=== PATIENT | male | born 1955 | race Caucasian/White ===

== ENCOUNTER → 2017-07-31 | Outpatient (CLI) | payer BC ==
[~2017-07-31] MED LIST: FLEXERIL10 MG PO; MOTRIN600 MG PO; VICODIN 5/500 505 MG PO
== END | disposition home or self-care (01) ==
LOC: US 10:17
DX: I10 Essential (primary) hypertension (principal)

== ENCOUNTER 2018-03-10 22:11 | Emergency (ER) | payer BC ==
[~2018-03-10] VITALS: Ht 177.8 cm; Wt 72.6 kg
[2018-03-11] MEDS ORDERED: CEPHALEXIN500 M1 PO (00:37)
== END 2018-03-11 01:25 | disposition home or self-care (01) ==
LOC: ED 22:11
DX: S61.212A Laceration without foreign body of right middle finger without damage to nail, initial encounter (principal); S61.214A Laceration without foreign body of right ring finger without damage to nail, initial encounter; E11.9 Type 2 diabetes mellitus without complications; Z86.018 Personal history of other benign neoplasm; W26.8XXA Contact with other sharp object(s), not elsewhere classified, initial encounter; Y93.G9 Activity, other involving cooking and grilling; Y92.89 Other specified places as the place of occurrence of the external cause; Y99.8 Other external cause status

== ENCOUNTER 2022-05-21 10:31 | Inpatient (IN) | payer MEDICARE ==
[~2022-05-21] VITALS: Ht 175.2 cm; Wt 70.1 kg
[~2022-05-21 10:31] MED LIST changes: +CEPHALEXIN500 M1 PO
[2022-05-21 10:43] VITALS: BP 165/92
[2022-05-21 11:04] LABS: BASO # 0.1 10*3/uL (0.0-0.1); BASO % 1.2 % (0.0-1.0); EOS # 0.1 10*3/uL (0.0-0.4); EOS % 1.9 % (1.0-4.0); HEMATOCRIT 41.9 % (42.0-52.0); LYMPH # 2.2 10*3/uL (1.3-4.4); LYMPH % 43.4 % (27.0-41.0); MEAN CELL VOLUME 75.9 fl (80.0-94.0); MEAN CORPUSCULAR HGB 24.6 pg (27.0-31.0); MEAN CORPUSCULAR HGB CONC 32.5 g/dl (33.0-37.0); MONO # 0.6 10*3/uL (0.1-1.0); NEUT # 2.2 10*3/uL (2.3-7.9); NEUT % 42.3 % (47.0-73.0); PLATELET COUNT AUTOMATED 385 10*3/uL (130-400); RED BLOOD COUNT 5.52 10*6/uL (4.50-5.90); RED CELL DISTRI WIDTH 13.8 % (0-14.5); WHITE BLOOD COUNT 5.2 10*3/uL (4.8-10.8)
[2022-05-21 11:11] VITALS: BP 156/77
[2022-05-21 11:15] LABS: ACT PARTIAL THROMBO TIME 26.9 SECONDS (20.0-32.1); INTERNATIONAL NORM RATIO 0.9 (2.0-3.5)
[2022-05-21 11:27] LABS: ALKALINE PHOSPHATASE 65 U/L (45-117); BUN 16 mg/dl (7-24); CHLORIDE 108 mmol/L (98-107); CREATININE 1.12 mg/dL (0.70-1.30); POTASSIUM 3.5 mmol/L (3.5-5.1); SGOT/AST 18 IU/L (3-35); SGPT/ALT 36 U/L (12-78); SODIUM 140 mmol/L (136-145); TOTAL PROTEIN 7.3 gm/dL (6.4-8.2)
[2022-05-21 14:38] VITALS: BP 162/83
[2022-05-21] MEDS ORDERED: AMLODIPINE BESY10 MG PO (16:42)
[2022-05-21] MEDS ORDERED: COZAAR25 M1 PO (16:42)
[2022-05-21] MEDS ORDERED: HYDROCHLOROTHIA25 M1 PO (16:43)
[2022-05-21] MEDS ORDERED: TRULICITY3 MG/0.5 M SQ (16:44)
[2022-05-21 21:59] VITALS: BP 182/90
[2022-05-22] VITALS: BP 186/80
[2022-05-22 06:25] LABS: BASO # 0.1 10*3/uL (0.0-0.1); BASO % 1.1 % (0.0-1.0); EOS # 0.1 10*3/uL (0.0-0.4); EOS % 1.5 % (1.0-4.0); HEMATOCRIT 43.6 % (42.0-52.0); LYMPH # 2.2 10*3/uL (1.3-4.4); MEAN CELL VOLUME 76.5 fl (80.0-94.0); MEAN CORPUSCULAR HGB 24.4 pg (27.0-31.0); MEAN CORPUSCULAR HGB CONC 31.9 g/dl (33.0-37.0); MEAN PLATELET VOLUME 11.3 fl (9.6-12.3); MONO # 0.6 10*3/uL (0.1-1.0); MONO % 10.4 % (3.0-9.0); NEUT # 2.5 10*3/uL (2.3-7.9); NEUT % 46.8 % (47.0-73.0); PLATELET COUNT AUTOMATED 384 10*3/uL (130-400); RED CELL DISTRI WIDTH 13.9 % (0-14.5); WHITE BLOOD COUNT 5.4 10*3/uL (4.8-10.8)
[2022-05-22 06:27] LABS: ACT PARTIAL THROMBO TIME 27.6 SECONDS (20.0-32.1)
[2022-05-22 06:34] LABS: BUN 16 mg/dl (7-24); CHLORIDE 109 mmol/L (98-107); CHOLESTEROL 266 mg/dL (<200); CREATININE 1.15 mg/dL (0.70-1.30); LDL CHOLESTEROL 197 mg/dL (9-159); POTASSIUM 3.7 mmol/L (3.5-5.1); SGOT/AST 21 IU/L (3-35); SGPT/ALT 37 U/L (12-78); SODIUM 141 mmol/L (136-145); TRIGLYCERIDES 159 mg/dl (<150)
[2022-05-22 06:39] LABS: ALKALINE PHOSPHATASE 61 U/L (45-117); FREE T4 1.27 ng/dl (0.76-1.46); TOTAL PROTEIN 7.4 gm/dL (6.4-8.2)
[2022-05-22 08:00] VITALS: BP 188/78
[2022-05-22 08:08] LABS: VITAMIN D, 25-HYDROXY 23.4 ng/mL (30-100)
[2022-05-22] MEDS ORDERED: ASPIRIN ADULT L81 M2 PO (10:57)
[2022-05-22] MEDS ORDERED: ATORVASTATIN CA40 M1 PO (10:57)
[2022-05-22] MEDS ORDERED: LOSARTAN POTASS50 M1 PO (10:57)
[2022-05-22] MEDS ORDERED: CLOPIDOGREL75 MG PO (10:57)
== END 2022-05-22 13:19 | disposition home or self-care (01) | DRG 65 ==
LOC: ED 10:31 → EDHOLD 11:54 → 5E 11:54 → EDHOLD 12:10 → 5E 23:25
PROVIDERS: Emergency Medicine; Family Medicine; ADMIT Emergency Medicine; ATTEND Emergency Medicine
DX: I63.9 Cerebral infarction, unspecified (principal); E44.0 Moderate protein-calorie malnutrition; E11.69 Type 2 diabetes mellitus with other specified complication; D50.9 Iron deficiency anemia, unspecified; I10 Essential (primary) hypertension; E11.42 Type 2 diabetes mellitus with diabetic polyneuropathy; R29.701 NIHSS score 1; E87.8 Other disorders of electrolyte and fluid balance, not elsewhere classified; E11.65 Type 2 diabetes mellitus with hyperglycemia; Z87.891 Personal history of nicotine dependence; Z80.1 Family history of malignant neoplasm of trachea, bronchus and lung; Z82.49 Family history of ischemic heart disease and other diseases of the circulatory system; Z68.22 Body mass index [BMI] 22.0-22.9, adult

== ENCOUNTER → 2022-12-31 | Outpatient (CLI) | payer MEDICARE ==
[~2022-12-31] MED LIST changes: +AMLODIPINE BESY10 MG PO; +ASPIRIN ADULT L81 M2 PO; +ATORVASTATIN CA40 M1 PO; +CLOPIDOGREL75 MG PO; +COZAAR25 M1 PO; +HYDROCHLOROTHIA25 M1 PO; +LOSARTAN POTASS50 M1 PO; +TRULICITY3 MG/0.5 M SQ
== END | disposition home or self-care (01) ==
LOC: US 14:31
PROVIDERS: ATTEND Internal Medicine Cardiovascular Disease
DX: H53.9 Unspecified visual disturbance (principal); I65.23 Occlusion and stenosis of bilateral carotid arteries

== ENCOUNTER 2023-10-16 14:19 | Emergency (ER) | payer MEDICARE ==
[~2023-10-16] VITALS: Ht 175.2 cm; Wt 72.6 kg
[2023-10-16] MEDS ORDERED: SODIUM CHLORIDE 0.9% 1,000 ML IV ONE (14:50)
[2023-10-16] MEDS ORDERED: Ondansetron Hydrochloride 4 MG/2 ML VIAL IV ONE (14:50)
[2023-10-16 15:03] LABS: BASO % 0.6 % (0.0-1.0); EOS # 0.1 10*3/uL (0.0-0.4); EOS % 2.6 % (1.0-4.0); HEMATOCRIT 42.6 % (42.0-52.0); LYMPH # 1.6 10*3/uL (1.3-4.4); LYMPH % 29.5 % (27.0-41.0); MEAN CELL VOLUME 76.9 fl (80.0-94.0); MEAN CORPUSCULAR HGB 23.6 pg (27.0-31.0); MEAN CORPUSCULAR HGB CONC 30.8 g/dl (33.0-37.0); MONO # 0.7 10*3/uL (0.1-1.0); MONO % 12.3 % (3.0-9.0); NEUT # 2.9 10*3/uL (2.3-7.9); NEUT % 54.4 % (47.0-73.0); PLATELET COUNT AUTOMATED 348 10*3/uL (130-400); RED BLOOD COUNT 5.54 10*6/uL (4.50-5.90); WHITE BLOOD COUNT 5.4 10*3/uL (4.8-10.8)
[2023-10-16 15:15] LABS: ACT PARTIAL THROMBO TIME 26.8 SECONDS (20.0-32.1)
[2023-10-16 15:25] LABS: ALKALINE PHOSPHATASE 66 U/L (46-116); BUN 17 mg/dl (9-23); CHLORIDE 101 mmol/L (98-107); LIPASE 38 U/L (12-53); POTASSIUM 3.8 mmol/L (3.4-5.1); SGPT/ALT 28 U/L (5-49); TOTAL PROTEIN 7.4 gm/dL (6.0-8.0)
[2023-10-16 16:22] LABS: BILIRUBIN Negative (Negative); BLOOD Negative (Negative); CLARITY Clear (Clear); COLOR Yellow (Yellow); GLUCOSE Negative (Negative); KETONE Trace (Negative); LEUKO ESTERASE Negative (Negative); NITRITE Negative (Negative); PH 6.5 (4.5-8.0); SPECIFIC GRAVITY <= 1.005 (1.001-1.030); UROBILINOGEN 0.2 E.U./dl (0.0-1.0)
[2023-10-16 16:59] LABS: BACTERIA TRACE; WBC 0-2 wbc/hpf (0-5)
[2023-10-16] MEDS ORDERED: ONDANSETRON4 MG SL (17:08)
== END 2023-10-16 17:21 | disposition home or self-care (01) ==
LOC: ED 14:19
PROVIDERS: Emergency Medicine
DX: R11.0 Nausea (principal); Z20.822 Contact with and (suspected) exposure to COVID-19; F41.9 Anxiety disorder, unspecified; E86.0 Dehydration; E11.9 Type 2 diabetes mellitus without complications; I10 Essential (primary) hypertension; R10.2 Pelvic and perineal pain; Z88.8 Allergy status to other drugs, medicaments and biological substances; Z98.890 Other specified postprocedural states; Z87.891 Personal history of nicotine dependence

== ENCOUNTER → 2025-04-22 | Outpatient (CLI) | payer MEDICARE ==
[~2025-04-22] MED LIST changes: +ONDANSETRON4 MG SL
== END | disposition home or self-care (01) ==
LOC: RESCLI 12:56
PROVIDERS: ATTEND Student in an Organized Health Care Education/Training Program
DX: I12.9 Hypertensive chronic kidney disease with stage 1 through stage 4 chronic kidney disease, or unspecified chronic kidney disease (principal); E11.22 Type 2 diabetes mellitus with diabetic chronic kidney disease; N18.9 Chronic kidney disease, unspecified; D63.1 Anemia in chronic kidney disease; E11.51 Type 2 diabetes mellitus with diabetic peripheral angiopathy without gangrene; K62.5 Hemorrhage of anus and rectum; I63.9 Cerebral infarction, unspecified; D64.9 Anemia, unspecified; F41.9 Anxiety disorder, unspecified; E78.5 Hyperlipidemia, unspecified